=== PATIENT | female | born 1955 | race Caucasian/White ===

== ENCOUNTER → 2020-06-11 | Outpatient (CLI) | payer OTHER ==
[2016-10-13 13:30] VITALS: BP 112/76
[~2020-06-11] MED LIST: AZIT250T6 PO; ENOX40DI SQ; HYDR-2761 PO; HYDR-2765 PO; HYDR-923 PO; MELO7.5T29 PO; MELO7.5T5 PO; MULT-211 PO; MULT-245 PO; OMEG1CAP6 PO; OMEP10CA4 PO; OMEP40CA2 PO; WARF10TA40 PO
--- NOTE | 2020-06-11 08:37 | RAD ---
EXAM: CT lumbar spine without IV contrast CLINICAL HISTORY: Low back pain COMPARISON: None available. TECHNIQUE: Helical CT was performed through the lumbar spine. Axial, coronal and sagittal reformatted images were generated. PQRS compliance statement - One or more of the following individualized dose reduction techniques were utilized for this study: 1. Automated exposure control 2. Adjustment of the mA and/or kV according to patient size 3. Use of iterative reconstruction technique FINDINGS: For the purposes of this report there are 5 nonrib-bearing lumbar-type vertebral bodies. Vertebral body heights are preserved. Mild L2-3, L3-4 disc height loss. Small anterior endplate osteophytes are seen. Mild L3-4, L4-5 and L5-S1 facet degenerative changes are seen. No acute fracture is seen. There is mild left lateral translation of L3 on L4. Trace retrolisthesis of L3 and L4. Small Schmorl's node is seen at L3 superior endplate T12-L1: No significant central canal stenosis or neural foraminal narrowing. L1-2: No significant central canal stenosis or neural foraminal narrowing. L2-3: Generalized partial disc bulge with ligamentum flavum hypertrophy and facet degenerative changes results in mild central canal stenosis and mild bilateral inferior neural foraminal narrowing. L3-4: Generalized disc bulge with ligamentum flavum hypertrophy and facet degenerative changes results in mild to moderate central canal stenosis, mild bilateral inferior neural foraminal narrowing. L4-5: Generalized disc bulge with ligamentum flavum hypertrophy and facet degenerative changes results in moderate central canal stenosis with moderate left and mild right inferior neural foraminal narrowing. Central disc extrusion with about 7 mm inferior migration of disc material. L5-S1: No significant central canal stenosis or neural foraminal narrowing. IMPRESSION: 1. Multilevel degenerative changes as described in detail above, most prominent at L4-5. 2. No acute fracture 3. Mild left lateral translation of L3 on L4 with trace retrolisthesis of L3 on L4. Electronically signed by: Zaire Wagner MD (06/11/2020 8:34 AM) [facility]
== END | disposition home or self-care (01) ==
LOC: CT 07:37
PROVIDERS: ATTEND Family Medicine
DX: M47.817 Spondylosis without myelopathy or radiculopathy, lumbosacral region (principal); M43.16 Spondylolisthesis, lumbar region; M51.46 Schmorl's nodes, lumbar region; M25.78 Osteophyte, vertebrae
CPT/HCPCS: 72131